=== PATIENT | female | born 1975 | race Caucasian/White ===

== ENCOUNTER → 2017-03-08 | Outpatient (REF) ==
[~2017-03-08] MED LIST: DUO-KAPS1 CAP PO; GLUCOSAMINE & C1 CA1 PO; LEVAQUIN 5500 MG/TA1 PO; LIORESAL 1010 MG/TAB PO; LOPRESSOR 225 MG/TAB PO; MULTI VITAMINS1 TAB PO; NORCO 325 MG-51 TAB PO; NORCO 325 MG-7.1 TAB PO; PERCOCET 325 MG1 TA2 PO; PHENERGAN 25 TA25 MG; SOMA 350MG350 MG/TAB PO; VITAMIN C500 MG PO
[2017-03-08 18:55] LABS: THYROID STIMULATING HORMONE 0.918 uIU/mL (0.465-4.680)
== END ==
LOC: ZLAB.WCH 18:11
PROVIDERS: Nurse Practitioner Family
DX: Z01.89 Encounter for other specified special examinations (principal)

== ENCOUNTER → 2017-09-06 | Outpatient (REF) ==
[2017-09-06 09:14] LABS: THYROID STIMULATING HORMONE 0.511 uIU/mL (0.465-4.680)
== END ==
LOC: ZLAB.WCH 08:28
PROVIDERS: Nurse Practitioner Family
DX: Z01.89 Encounter for other specified special examinations (principal)